=== PATIENT | male | born 1960 | race African-American/Black ===

== ENCOUNTER 2017-05-31 09:41 | Observation (INO) ==
[2017-05-31] MEDS ORDERED: Aspirin 81 MG TAB.CHEW PO ONE (09:57)
[2017-05-31] MEDS ORDERED: 0.9 % Sodium Chloride 500 ML IVC ONE (09:57)
[2017-05-31] MEDS ORDERED: Nitroglycerin 0.4 MG TAB.SUBL SL ONE (09:57)
[2017-05-31 10:15] LABS: Basophils # 0.1 K/mcL (0.0-0.2); Basophils % 1.2 %; Eosinophils # 0.2 K/mcL (0.0-0.6); Eosinophils % 2.9 %; Hematocrit 45.8 % (37.5-50.1); Hemoglobin 15.1 g/dL (12.9-16.9); Immature Granulocytes % 0.2 % (0-4); Lymphocytes # 1.9 K/mcL (0.6-4.6); Lymphocytes % 28.2 %; Mean Corpuscular Hemoglobin 26.8 pg (28.0-33.3); Mean Corpuscular Volume 81.2 fL (83.0-100.0); Monocytes # 0.6 K/mcL (0.0-1.3); Monocytes % 9.1 %; Neutrophils # 3.9 K/mcL (1.6-8.9); Platelet Count 84 K/mcL (140-400); Red Blood Count 5.64 M/mcL (4.19-5.50); Segmented Neutrophils % 58.4 %
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
[2017-05-31 10:21] LABS: INR 1.5
[2017-05-31 10:24] LABS: Activated Partial Thrombo Time 34.7 Seconds (26.0-36.0)
[2017-05-31 10:25] LABS: Beta-Hydroxybutyric Acid 1.57 mmol/L (0.02-0.27)
[2017-05-31 10:29] LABS: Alanine Aminotransferase 46 Units/L (0-55); Albumin 3.5 g/dL (3.5-5.0); Albumin/Globulin Ratio 0.8 (1.1-2.2); Alkaline Phosphatase 146 Units/L (38-126); Aspartate Amino Transferase 55 Units/L (5-34); BUN/Creatinine Ratio 10 (6-26); Bilirubin,Direct 1.8 mg/dL (0.0-0.5); Bilirubin,Indirect 2.6 mg/dL (0.0-1.2); Bilirubin,Total 4.4 mg/dL (0.2-1.2); Blood Urea Nitrogen 10 mg/dL (8-26); Calcium 8.9 mg/dL (8.6-10.8); Carbon Dioxide 26 mEq/L (19-29); Chloride 96 mEq/L (98-109); Globulin 4.3 g/dL (2.4-3.5); Glucose 160 mg/dL (70-99); Lipase 18 Units/L (8-78); Osmolality,Calculated 282 (280-300); Potassium 3.3 mEq/L (3.5-4.5); Sodium 135 mEq/L (136-145); Total Protein 7.8 g/dL (6.0-8.3); eGFR For African Americans > 60 (> 60); eGFR For Non-African Americans > 60 (> 60)
[2017-05-31 13:55] LABS: Bilirubin,Urine Moderate (Negative); Blood,Urine Trace (Negative); Clarity,Urine Turbid (Clear); Color,Urine Dark Yellow (Yellow); Glucose,Urine (UA) Normal (Normal); Ketones,Urine 40 mg/dL (Negative); Leukocyte Esterase,Urine Large (Negative); Nitrite,Urine Negative (Negative); Protein,Urine 30 mg/dL (Neg-Trace); Specific Gravity,Urine > 1.030 (1.010-1.025)
[2017-05-31 13:58] LABS: Bacteria,Urine Many per hpf (None-Few); Hyaline Casts,Urine Few per lpf (None-Few); RBC,Urine 0-3 per hpf (0-3); Squamous Epithelial Cell,Urine Moderate per lpf (None-Few); WBC,Urine TNTC per hpf (0-3)
[2017-05-31] MEDS ORDERED: Acetaminophen 325 MG TABLET PO PRN (14:39)
[2017-05-31] MEDS ORDERED: Naloxone 0.4 MG/ML INJ IVP PRN (14:39)
[2017-05-31] MEDS ORDERED: Ondansetron 4 MG/2 ML VIAL IVP PRN (14:39)
[2017-05-31] MEDS ORDERED: *HR* Morphine 2 MG/ML SYRINGE IVP PRN (14:39)
[2017-05-31] MEDS ORDERED: Nitroglycerin 0.4 MG TAB.SUBL SL PRN (14:46)
[2017-05-31] MEDS ORDERED: D5% in Water 1,000 ML IVC PRN (15:03)
[2017-05-31] MEDS ORDERED: Dextrose Gel 15 GM PO PRN ×2 (15:03)
[2017-05-31] MEDS ORDERED: *HR* Dextrose 50 % in Water (Syg) 50 ML SYRINGE IVP PRN (15:03)
[2017-05-31 15:35] LABS: Amphetamine Screen,Urine Negative ng/mL (Cutoff=1000); Barbiturate Screen,Urine Negative ng/mL (Cutoff=200); Benzodiazepines Screen,Urine Negative ng/mL (Cutoff=200); Cannabinoid Screen,Urine Negative ng/mL (Cutoff = 50); Cocaine Screen,Urine Positive ng/mL (Cutoff= 300); Opiate Screen,Urine Negative ng/mL (Cutoff=300); Phencyclidine Screen,Urine Negative ng/mL (Cutoff=25)
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
[2017-05-31] MEDS: Insulin LISPRO 300 UNITS/3 ML VIAL SQ SCH ×2 (16:49→20:28)
[2017-05-31] MEDS: *HR* HYDROcodone/Acet 5/325 mg TABLET PO PRN (20:34)
[2017-05-31] MEDS: *HR* Heparin 5,000 UNIT/ML VIAL SQ SCH (21:00)
[2017-06-01] MEDS: *HR* Heparin 5,000 UNIT/ML VIAL SQ SCH ×3 (06:03→21:26)
[2017-06-01 07:14] LABS: Alanine Aminotransferase 39 Units/L (0-55); Albumin/Globulin Ratio 0.9 (1.1-2.2); Alkaline Phosphatase 143 Units/L (38-126); Aspartate Amino Transferase 57 Units/L (5-34); BUN/Creatinine Ratio 11 (6-26); Bilirubin,Direct 1.4 mg/dL (0.0-0.5); Bilirubin,Indirect 1.3 mg/dL (0.0-1.2); Bilirubin,Total 2.7 mg/dL (0.2-1.2); Blood Urea Nitrogen 9 mg/dL (8-26); Calcium 8.4 mg/dL (8.6-10.8); Carbon Dioxide 27 mEq/L (19-29); Chloride 99 mEq/L (98-109); Chol/HDL Ratio 6.8 (0-4.9); Cholesterol 116 mg/dL (< 200); Globulin 3.4 g/dL (2.4-3.5); Glucose 154 mg/dL (70-99); HDL Cholesterol 17 mg/dL (40-59); LDL Cholesterol,Calculated 83 mg/dL (0-99); Magnesium 1.5 mg/dL (1.6-2.6); Osmolality,Calculated 284 (280-300); Sodium 136 mEq/L (136-145); Total Protein 6.4 g/dL (6.0-8.3); Triglycerides 81 mg/dL (< 150); eGFR For African Americans > 60 (> 60); eGFR For Non-African Americans > 60 (> 60)
[2017-06-01 07:22] LABS: Basophils # 0.1 K/mcL (0.0-0.2); Basophils % 1.6 %; Eosinophils # 0.2 K/mcL (0.0-0.6); Eosinophils % 3.8 %; Hematocrit 38.3 % (37.5-50.1); Hemoglobin 12.9 g/dL (12.9-16.9); Immature Granulocytes % 0.2 % (0-4); Lymphocytes # 1.9 K/mcL (0.6-4.6); Lymphocytes % 33.8 %; Mean Corpuscular HGB Conc 33.7 g/dL (31.6-35.5); Mean Corpuscular Hemoglobin 27.1 pg (28.0-33.3); Mean Corpuscular Volume 80.5 fL (83.0-100.0); Mean Platelet Volume 13.2 fL (9.4-12.4); Monocytes # 0.6 K/mcL (0.0-1.3); Monocytes % 10.9 %; Neutrophils # 2.7 K/mcL (1.6-8.9); Red Blood Count 4.76 M/mcL (4.19-5.50); Red Cell Distribution Width 15.7 % (11.5-14.5); Segmented Neutrophils % 49.7 %
[2017-06-01 07:27] LABS: Platelet Count 69 K/mcL (140-400)
[2017-06-01 07:39] LABS: INR 1.4; Prothrombin Time 15.6 Seconds (9.4-12.1)
[2017-06-01 07:42] LABS: Activated Partial Thrombo Time 33.8 Seconds (26.0-36.0)
[2017-06-01] MEDS: Insulin LISPRO 300 UNITS/3 ML VIAL SQ SCH ×4 (07:47→21:26)
[2017-06-01] MEDS: Aspirin Enteric Coated 81 MG Tablet PO SCH (07:47)
[2017-06-01] MEDS ORDERED: Pantoprazole 40 MG VIAL IVP SCH (09:00)
[2017-06-01] MEDS ORDERED: 0.9 % Sodium Chloride w KCl 20 MEQ/1,000 ML MLS IVC SCH (09:30)
[2017-06-01 10:01] LABS: Hemoglobin A1C 7.2 %
[2017-06-01 10:41] LABS: Hepatitis A Antibody IgM Nonreactive (Nonreactive); Hepatitis B Surface Antigen Nonreactive (Nonreactive)
[2017-06-01 10:42] LABS: Hepatitis B Core IgM Reactive (Nonreactive); Hepatitis C Virus Antibody Reactive (Nonreactive)
--- NOTE | 2017-06-01 14:47 | Electrocardiograph Report ---
[address] [address] Test Date: 2017-05-31 Pat Name: Travis Mayberry Department: 0 Room: 2A Gender: M [employer] Architect: Hardeep : 1960 Requested By: Marleny Fermin Order Number: [id number] Reading MD: Jean Melgar MD Measurements Intervals [place]ansom Rate: 102 P: 47 NC: 150 QRS: 26 QRSD: 104 T: 42 QT: 392 QTc: 450 Interpretive Statements SINUS TACHYCARDIA BASELINE ARTIFACT Electronically Signed On 06-01-2017 14:45:27 EDT by Jean Melgar MD
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
[2017-06-01] MEDS: Miconazole w/zinc oxide&karaya 92 APPL/92 GM TUBE TP SCH (21:27)
[2017-06-02] MEDS: *HR* Heparin 5,000 UNIT/ML VIAL SQ SCH ×3 (06:04→22:42)
[2017-06-02 06:45] LABS: Alanine Aminotransferase 43 Units/L (0-55); Albumin/Globulin Ratio 0.9 (1.1-2.2); Alkaline Phosphatase 150 Units/L (38-126); Aspartate Amino Transferase 61 Units/L (5-34); BUN/Creatinine Ratio 6 (6-26); Bilirubin,Total 1.5 mg/dL (0.2-1.2); Calcium 8.4 mg/dL (8.6-10.8); Carbon Dioxide 25 mEq/L (19-29); Chloride 100 mEq/L (98-109); Globulin 3.5 g/dL (2.4-3.5); Glucose 173 mg/dL (70-99); Magnesium 1.5 mg/dL (1.6-2.6); Osmolality,Calculated 283 (280-300); Potassium 3.5 mEq/L (3.5-4.5); Sodium 136 mEq/L (136-145); Total Protein 6.5 g/dL (6.0-8.3); eGFR For African Americans > 60 (> 60); eGFR For Non-African Americans > 60 (> 60)
[2017-06-02 06:46] LABS: Blood Urea Nitrogen 5 mg/dL (8-26)
[2017-06-02] MEDS: Aspirin Enteric Coated 81 MG Tablet PO SCH (08:38)
[2017-06-02] MEDS: Insulin LISPRO 300 UNITS/3 ML VIAL SQ SCH ×4 (08:39→20:52)
[2017-06-02] MEDS: Miconazole w/zinc oxide&karaya 92 APPL/92 GM TUBE TP SCH ×2 (08:42→20:06)
[2017-06-02] MEDS: *HR* HYDROcodone/Acet 5/325 mg TABLET PO PRN ×2 (14:40→20:06)
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
--- NOTE | 2017-06-02 17:40 | Venous Imaging Report ---
LE Venous Duplex Patient Name:Travis Mayberry Order Number:[id number] Procedure Date:05/31/2017 Date:1960Age:56 yrs Gender:Male Lt BP:122 / 73 mmHg Rt.BP:122 / 73 mmHgHeart Rate: Location:[facility] Room #: 2A63 Traveling Auditor:Bev Hernandez RDCS Referring MD:Rei Seth, [employer] retail mortgage banker:None Reading MD:Mikhail Andrade MD Primary Indications:D-dimer of 882/ rule out DVT Secondary Indications: Impressions: Bilateral lower extremity: normal superficial and deep exam. Findings Prior Study: No prior study available for comparison. Lower Extremity Venous Duplex Side Vein Compress Spontaneous Flow Augment Diameter (cm) Depth (cm) Right Distal Iliac Normal Yes Phasic Yes Right Common Femoral Normal Yes Phasic Yes Right Superficial Femoral Normal Yes Phasic Yes Right Popliteal Normal Yes Phasic Yes Right Posterior Tibial Normal Yes Phasic Yes Right Peroneal Normal Yes Phasic Yes Right Saphenofemoral Junction Normal Yes Phasic Yes Right Great Saphenous Normal Yes Phasic Yes Right Lesser Saphenous Normal Yes Phasic Yes Left Distal Iliac Normal Yes Phasic Yes Left Common Femoral Normal Yes Phasic Yes Left Superficial Femoral Normal Yes Phasic Yes Left Popliteal Normal Yes Phasic Yes Left Posterior Tibial Normal Yes Phasic Yes Left Peroneal Normal Yes Phasic Yes Left Saphenofemoral [place] Normal Yes Phasic Yes Left Great Saphenous Normal Yes Phasic Yes Left Lesser Saphenous Normal Yes Phasic Yes Updated by Mikhail Andrade MD on 06/02/2017 5:35:33 PM electronically signed on 06/02/2017 5:35:59 PM with status of Final
[2017-06-03] MEDS: *HR* HYDROcodone/Acet 5/325 mg TABLET PO PRN ×3 (05:20→20:55)
[2017-06-03] MEDS: *HR* Heparin 5,000 UNIT/ML VIAL SQ SCH ×3 (05:20→20:51)
[2017-06-03] MEDS: Insulin LISPRO 300 UNITS/3 ML VIAL SQ SCH ×4 (07:59→20:57)
[2017-06-03] MEDS: Miconazole w/zinc oxide&karaya 92 APPL/92 GM TUBE TP SCH (08:05)
[2017-06-03] MEDS: Aspirin Enteric Coated 81 MG Tablet PO SCH (08:05)
[2017-06-03] MEDS: *HR* LORazepam 0.5 MG TABLET PO PRN ×2 (08:09→16:14)
[2017-06-03] MEDS ORDERED: Magnesium Sulfate 2 GM in D5% in Water 100 ML IVPB ONE (13:26)
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
[2017-06-04] MEDS: Miconazole w/zinc oxide&karaya 92 APPL/92 GM TUBE TP SCH ×3 (00:11→21:30)
[2017-06-04 05:12] LABS: Hemoglobin 12.2 g/dL (12.9-16.9); Immature Granulocytes % 0.3 % (0-4)
[2017-06-04 05:15] LABS: Basophils # 0.1 K/mcL (0.0-0.2); Basophils % 1.7 %; Eosinophils # 0.2 K/mcL (0.0-0.6); Eosinophils % 4.3 %; Hematocrit 36.6 % (37.5-50.1); Immature Platelets 11.9 % (1.1-6.1); Lymphocytes # 1.6 K/mcL (0.6-4.6); Lymphocytes % 45.1 %; Mean Corpuscular HGB Conc 33.3 g/dL (31.6-35.5); Mean Platelet Volume 11.7 fL (9.4-12.4); Monocytes # 0.4 K/mcL (0.0-1.3); Monocytes % 11.1 %; Neutrophils # 1.3 K/mcL (1.6-8.9); Red Blood Count 4.52 M/mcL (4.19-5.50); Segmented Neutrophils % 37.5 %
[2017-06-04 05:16] LABS: Platelet Count 56 K/mcL (140-400)
[2017-06-04 05:33] LABS: Alanine Aminotransferase 51 Units/L (0-55); Albumin 2.8 g/dL (3.5-5.0); Albumin/Globulin Ratio 0.8 (1.1-2.2); Alkaline Phosphatase 129 Units/L (38-126); Aspartate Amino Transferase 69 Units/L (5-34); BUN/Creatinine Ratio 7 (6-26); Bilirubin,Total 1.1 mg/dL (0.2-1.2); Blood Urea Nitrogen 6 mg/dL (8-26); Calcium 8.2 mg/dL (8.6-10.8); Carbon Dioxide 26 mEq/L (19-29); Chloride 106 mEq/L (98-109); Globulin 3.4 g/dL (2.4-3.5); Glucose 161 mg/dL (70-99); Magnesium 1.5 mg/dL (1.6-2.6); Osmolality,Calculated 287 (280-300); Sodium 138 mEq/L (136-145); Total Protein 6.2 g/dL (6.0-8.3); eGFR For African Americans > 60 (> 60); eGFR For Non-African Americans > 60 (> 60)
[2017-06-04] MEDS: *HR* Heparin 5,000 UNIT/ML VIAL SQ SCH ×3 (05:42→21:32)
[2017-06-04] MEDS: *HR* LORazepam 0.5 MG TABLET PO PRN ×2 (05:45→14:32)
[2017-06-04] MEDS: *HR* HYDROcodone/Acet 5/325 mg TABLET PO PRN ×4 (05:45→21:29)
[2017-06-04] MEDS: Aspirin Enteric Coated 81 MG Tablet PO SCH (08:17)
[2017-06-04] MEDS: Insulin LISPRO 300 UNITS/3 ML VIAL SQ SCH ×4 (08:17→21:31)
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
[2017-06-04] MEDS: Magnesium Oxide 400 MG TABLET PO SCH ×2 (09:33→21:33)
[2017-06-05] MEDS: *HR* Heparin 5,000 UNIT/ML VIAL SQ SCH ×3 (05:49→22:08)
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
[2017-06-05] MEDS: Aspirin Enteric Coated 81 MG Tablet PO SCH (08:09)
[2017-06-05] MEDS: Magnesium Oxide 400 MG TABLET PO SCH ×2 (08:09→22:09)
[2017-06-05] MEDS: *HR* HYDROcodone/Acet 5/325 mg TABLET PO PRN ×3 (08:10→22:09)
[2017-06-05] MEDS: Insulin LISPRO 300 UNITS/3 ML VIAL SQ SCH ×4 (08:10→22:10)
[2017-06-05] MEDS: Miconazole w/zinc oxide&karaya 92 APPL/92 GM TUBE TP SCH ×2 (08:10→22:10)
[2017-06-05] MEDS: *HR* LORazepam 0.5 MG TABLET PO PRN ×2 (08:21→22:10)
[2017-06-06] MEDS: *HR* Heparin 5,000 UNIT/ML VIAL SQ SCH ×2 (05:48→14:11)
[2017-06-06 07:04] VITALS: BP 137/79
[2017-06-06] MEDS: Insulin LISPRO 300 UNITS/3 ML VIAL SQ SCH ×2 (07:38→11:30)
[2017-06-06] MEDS: Aspirin Enteric Coated 81 MG Tablet PO SCH (09:26)
[2017-06-06] MEDS: *HR* HYDROcodone/Acet 5/325 mg TABLET PO PRN ×2 (09:26→14:11)
[2017-06-06] MEDS: Magnesium Oxide 400 MG TABLET PO SCH (09:26)
[2017-06-06] MEDS: Miconazole w/zinc oxide&karaya 92 APPL/92 GM TUBE TP SCH (09:26)
[2017-06-06] MEDS: *HR* LORazepam 0.5 MG TABLET PO PRN (09:44)
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
--- NOTE | 2017-06-06 11:13 | Physician Discharge Referral ---
Extended[facility] Referral Info Transfer To: F Provider in Charge after Transfer: PCP Institutional Level of Care: Skilled - Diagnosis (1) Chest pain Status: Acute (2) Drug abuse, cocaine type Status: Acute (3) Hypokalemia Status: Acute (4) Diabetes Status: Chronic (5) H/O medication noncompliance Status: Acute (6) Physical deconditioning Status: Acute (7) DVT prophylaxis Status: Acute - Transfer Medications Prescriptions: HYDROcodone/Acet 5/325 mg [[place]calf 5-325 mg] 1 tab PO Q8HR PRN #10 tab PRN Reason: Moderate Pain (4-6) Cyclobenzaprine HCl 5 mg PO Q8H #15 LORazepam [Ativan] 0.5 mg PO BID PRN #10 tab PRN Reason: Anxiety Home Medications: Ergocalciferol (VITAMIN D2) [Vitamin D2 (50,000 UNIT)] 50,000 unit PO QWEEK [History] Omeprazole [PriLOSEC] 20 mg PO DAILY 04/30/16 [History] Acetaminophen [Tylenol] 650 mg PO Q6HR PRN 06/23/16 [History] Calcium/Vit B12/FA/Pyridoxine [Folic Acid-Vit B6-Vit B12 Tab] 1 each PO DAILY # 30 tablet 06/23/16 [Rx] Gabapentin [Neurontin] 400 mg PO TID 12/20/16 [History] GlipiZIDE XL (24 HR) [Glucotrol XL] 10 mg PO 0800 05/05/17 [History] Insulin Glargine,Hum.rec.anlog [Basaglar Kwikpen U-100] 35 unit SQ HS 05/05/17 [ History] Insulin LISPRO [Humalog Kwikpen U-100] 7 unit SQ TIDWM 05/05/17 [History] Metformin HCl [Fortamet] 500 mg PO DAILY 05/05/17 [History] Aspirin Enteric Coated [Aspirin EC] 81 mg PO DAILY 06/06/17 [Rx] Atorvastatin [Lipitor] 20 mg PO HS tab 06/06/17 [Rx] Cyclobenzaprine HCl 5 mg PO Q8H #15 06/06/17 [Rx] HYDROcodone/Acet 5/325 mg [Metcalf 5-325 mg] 1 tab PO Q8HR PRN #10 tab 06/06/17 [ Rx] LORazepam [Ativan] 0.5 mg PO BID PRN #10 tab 06/06/17 [Rx] Magnesium Oxide [Mag-Ox] 400 mg PO BID tab 06/06/17 [Rx] Allergies/Adverse Reactions: 3 Allergy/AdvReac Type Severity Reaction Status Date / Time Sulfa (Sulfonamide Allergy Mild Rash Verified 05/05/17 13:39 Antibiotics) - Respiratory Orders Smoking Cessation: Smoking cessation has been advised. For more information, call the [place] Tobacco Quit Line at 1-486-QERX-NOW. CERTIFICATION: I certify that the transfer of the above named patient to an Extended Care Facility is necessary for the continuing treatment of the diagnosis listed. The above information is true and accurate reflection of patient's current condition. Confidential - Redisclosure prohibited without a patient's written consent.
== END 2017-06-06 15:38 ==
LOC: 2ANU 09:41 → EMEROO 09:41 → MERGE 14:06 → SUATTDRO 14:06 → 2ANU 14:57
PROVIDERS: ADMIT Internal Medicine; ATTEND Family Medicine